=== PATIENT | male | born 1950 | race Caucasian/White ===

== ENCOUNTER 2019-06-30 10:43 | Emergency (ER) | payer MEDICARE, BC ==
[~2019-06-30] VITALS: Ht 172.7 cm; Wt 72.6 kg
--- NOTE | 2019-06-30 11:30 | PHYS DOC ---
Past Medical History Past Medical History: Arthritis, GERD, High Cholesterol, Hypertension Additional Past Medical Histor: METABOLIC ENCEPHALOPATHY,COGNITIVE IMPAIRED Past Surgical History: Other Additional Past Surgical Histo: UNKNOWN Alcohol Use: None Drug Use: None Adult General Chief Complaint Chief Complaint: MECHANICAL FALL HPI HPI Patient is a 69 year old male with history of hypertension, dyslipidemia, GERD, metabolic encephalopathy, impaired cognitive, resident of longterm who presents via EMS with complaint of a fall. shelter reports the patient has a fall from bed without loss of consciousness and was not talking like his usual. Patient states he had a fall from wheelchair and did not lost his consciousness. Patient complaining of pain in neck and left hip and rated his pain 9/10 even he looked comfortable. Patient denies focal neuro deficit, chest pain, nausea and vomiting, shortness of breath. Patient is alert and oriented but keep his eyes closed during giving the history. Review of Systems Review of Systems Constitutional: Denies fever or chills [] Eyes: Denies change in visual acuity, redness, or eye pain [] HENT: Denies nasal congestion or sore throat [] Respiratory: Denies cough or shortness of breath [] Cardiovascular: No additional information not addressed in HPI [] GI: Denies abdominal pain, nausea, vomiting, bloody stools or diarrhea [] : Denies dysuria or hematuria [] Musculoskeletal: Denies back pain, reports neck and joint pain [] Integument: Denies rash or skin lesions [] Neurologic: Denies headache, focal weakness or sensory changes [] Endocrine: Denies polyuria or polydipsia [] All other systems were reviewed and found to be within normal limits, except as documented in this note. Current Medications Current Medications Current Medications Medications (Trade) Dose Ordered Sig/[facility] Start Time Stop Time Status Last Admin Dose Admin Fentanyl Citrate (Fentanyl 2ml Vial) 50 mcg 1X ONCE 06/30/19 11:30 06/30/19 11:31 DC 06/30/19 11:39 50 MCG Allergies Allergies Allergies Coded Allergies Type Severity Reaction Last Updated Verified No Known Drug Allergies 06/30/19 No Physical Exam Physical Exam Constitutional: Well nourished, mild distress, non-toxic appearance. [] HENT: Normocephalic, atraumatic. Eyes: PERRLA, EOMI, conjunctiva normal, no discharge. [] Neck: Immobilized at arrival to ER Cardiovascular:Heart rate regular rhythm, no murmur [] Lungs & Thorax: Bilateral breath sounds clear to auscultation [] Abdomen: Bowel sounds normal, soft, no tenderness, no masses, no pulsatile masses. [] Skin: Warm, dry, no erythema, no rash. [] Back: No tenderness, no CVA tenderness. [] Extremities: Left hip with painful range of motion and marked tenderness without shortening or external rotation, no edema. [] Neurologic: Alert and oriented X 3, no focal deficits noted. [] Psychologic: Affect is flat, mood normal. [] Current Patient Data Vital Signs Vital Signs Date Time Temp Pulse Resp B/P (MAP) Pulse Ox O2 Delivery O2 Flow Rate FiO2 06/30/19 10:55 98.6 102 15 111/71 (84) 99 Room Air 98.6 Lab Values Laboratory Tests Test 06/30/19 11:34 06/30/19 12:10 White Blood Count 9.8 x10^3/uL (4.0-11.0) Red Blood Count 5.85 x10^6/uL (4.30-5.70) H Hemoglobin 16.3 g/dL (13.0-17.5) Hematocrit 48.1 % (39.0-53.0) Mean Corpuscular Volume 82 fL (79-100) Mean Corpuscular Hemoglobin 28 pg (25-35) Mean Corpuscular Hemoglobin Concent 34 g/dL (31-37) Red Cell Distribution Width 13.7 % (11.5-14.5) Platelet Count 408 x10^3/uL (140-400) H Neutrophils (%) (Auto) 67 % (31-73) Lymphocytes (%) (Auto) 22 % (24-48) L Monocytes (%) (Auto) 9 % (0-9) Eosinophils (%) (Auto) 1 % (0-3) Basophils (%) (Auto) 1 % (0-3) Neutrophils # (Auto) 6.5 x10^3/uL (1.8-7.7) Lymphocytes # (Auto) 2.2 x10^3/uL (1.0-4.8) Monocytes # (Auto) 0.9 x10^3/uL (0.0-1.1) Eosinophils # (Auto) 0.1 x10^3/uL (0.0-0.7) Basophils # (Auto) 0.1 x10^3/uL (0.0-0.2) Prothrombin Time 13.1 SEC (11.7-14.0) Prothrombin Time INR 1.0 (0.8-1.1) Sodium Level 135 mmol/L (136-145) L Potassium Level 4.1 mmol/L (3.5-5.1) Chloride Level 100 mmol/L (98-107) Carbon Dioxide Level 25 mmol/L (21-32) Anion Gap 10 (6-14) Blood Urea Nitrogen 24 mg/dL (8-26) Creatinine 0.9 mg/dL (0.7-1.3) Estimated GFR (Cockcroft-Gault) 84.2 BUN/Creatinine Ratio 27 (6-20) H Glucose Level 104 mg/dL (70-99) H Calcium Level 9.3 mg/dL (8.5-10.1) Total Bilirubin 0.5 mg/dL (0.2-1.0) Aspartate Amino Transferase (AST) 24 U/L (15-37) Alanine Aminotransferase (ALT) 22 U/L (16-63) Alkaline Phosphatase 65 U/L (46-116) Creatine Kinase 29 U/L (39-308) L Total Protein 6.7 g/dL (6.4-8.2) Albumin 3.1 g/dL (3.4-5.0) L Albumin/Globulin Ratio 0.9 (1.0-1.7) L Laboratory Tests 06/30/19 11:34 Laboratory Tests 06/30/19 12:10 EKG EKG [] Radiology/Procedures Radiology/Procedures [facility] [address] [place] [address] IMAGING REPORT Signed PATIENT: ROSE MARY STANLEY ACCOUNT: [id number] : 1950 LOCATION: ER AGE: 69 SEX: M EXAM STATUS: REG ER ORD. PHYSICIAN: FAZAL DAVIS MD REASON: fall PROCEDURE: CHEST AP ONLY AP view the pelvis and two-view study of the left hip Clinical indications: Fall. Pain. FINDINGS: No acute fracture of the left hip is seen. Left hip is normally aligned. No acute fracture or diastases of the pelvic bones is seen. IMPRESSION: No acute fracture. CHEST AP ONLY Clinical indications: Fall and pain. COMPARISON: None available. Findings: No acute lung infiltrate or pleural effusion or pulmonary edema or lung mass or pneumothorax is seen. The heart size, pulmonary vasculature, mediastinum and both willis are unremarkable. No obvious rib deformity is seen. Impression: No acute radiographic abnormality is seen. Electronically signed by: Enrrique Patiño MD (06/30/2019 1:05 PM) [id number] DICTATED and SIGNED BY: ENRRIQEU PATIÑO MD DATE: 06/30/19 1305 [facility] [address] [place] [address] IMAGING REPORT Signed PATIENT: ROSE MARY STANLEY ACCOUNT: [id number] : 1950 LOCATION: ER AGE: 69 SEX: M EXAM STATUS: REG ER ORD. PHYSICIAN: FAZAL DAVIS MD REASON: fall PROCEDURE: CT HEAD AND CERVICAL SPINE WO Examination: CT HEAD AND CERVICAL SPINE WO History: Fall, pain Comparison/Correlation: None Findings: Axial images of the head and cervical spinal obtained without contrast. Sagittal and coronal reformatted images of the cervical spine were obtained. Atrophy is present. Globes and optic nerves are unremarkable. Minimal mucosal thickening of the right maxillary sinus noted. Punctate density is present within soft tissues of the superior left nasal level. This is identified on axial image 8 of series 3. Atlantoaxial joint degenerative remodeling is present. Fusion of the right C2-4 facet joints which appears developmental is noted. Narrowing of the right C4-5 facet joint is moderate. Moderate to severe C5-6 disc space narrowing is present. Spurring is noted at this level. Mild C4-5 and C6-7 disc space narrowing noted. Mild bony encroachment upon the neural foramina at C5-6 noted on the right. Vertebral body heights are adequate. No displaced fracture or bone destruction. Calcific involvement of the left carotid bulb noted. Soft tissues of the neck are unremarkable.. Impression: Degenerative changes of the cervical spine. No intracranial hemorrhage. Punctate density within the left superior nose soft tissue region. Correlate for possible foreign body. PQRS Compliance Statement: One or more of the following individualized dose reduction techniques were utilized for this examination: 1. Automated exposure control 2. Adjustment of the mA and/or kV according to patient size 3. Use of iterative reconstruction technique Electronically signed by: Hayes Robison MD (06/30/2019 12:33 PM) [facility] DICTATED and SIGNED BY: HAYES ROBISON MD DATE: 06/30/19 1233 [facility] [address] [place] [address] IMAGING REPORT Signed PATIENT: ROSE MARY STANLEY ACCOUNT: [id number] : 1950 LOCATION: ER AGE: 69 SEX: M EXAM STATUS: REG ER ORD. PHYSICIAN: FAZAL DAVIS MD REASON: fall PROCEDURE: HIP LEFT 2V WITH PELVIS AP view the pelvis and two-view study of the left hip Clinical indications: Fall. Pain. FINDINGS: No acute fracture of the left hip is seen. Left hip is normally aligned. No acute fracture or diastases of the pelvic bones is seen. IMPRESSION: No acute fracture. CHEST AP ONLY Clinical indications: Fall and pain. COMPARISON: None available. Findings: No acute lung infiltrate or pleural effusion or pulmonary edema or lung mass or pneumothorax is seen. The heart size, pulmonary vasculature, mediastinum and both willis are unremarkable. No obvious rib deformity is seen. Impression: No acute radiographic abnormality is seen. Electronically signed by: Enrrique Patiño MD (06/30/2019 1:05 PM) [id number] DICTATED and SIGNED BY: ENRRIQUE PATIÑO MD DATE: 06/30/19 1305 Course & Med Decision Making Course & Med Decision Making Pertinent Labs and Imaging studies reviewed. (See chart for details) Evaluation of patient in ER showed 69-year-old male patient resident of longterm with history of encephalopathy and cognitive impairment brought in with complaining of a fall and injury to neck and left hip. Patient had unremarkable exam and looked comfortable but rated his pain 9/10. Patient treated with fentanyl and felt better. Patient had unremarkable labs and CT head and C-spine and x-ray of chest, left hip and pelvis. Plan discharge patient to the longterm with instruction of fall prevention. Dragon Disclaimer Dragon Disclaimer This electronic medical record was generated, in whole or in part, using a voice recognition dictation system. Departure Departure Impression: Primary Impression: Fall at longterm Additional Impressions: Acute cervical myofascial strain Injury of left hip Disposition: 03 TRANSFER SNF (at 1316) Condition: STABLE Patient Instructions: Cervical Strain and Sprain with Rehab[facility], Fall Prevention and Home Safety, Hip Injury Additional Instructions: Continue current medication Follow-up with your primary care physician in 2-3 days Return to ER if not getting better Thank you for visiting [facility]. We appreciate you trusting us with your care. If any additional problems come up don't hesitate to return to visit us. Please follow up with your primary care provider so they can plan additional care if needed and know about the problem that you had. If symptoms worsen come back to the Emergency Department. Any concerning symptoms that start such as chest pain, shortness of air, weakness or numbness on one side of the body, running high fevers or any other concerning symptoms return to the ER. Problem Qualifiers Primary Impression: Fall at longterm Encounter type: initial encounter Qualified Codes: W19.XXXA - Unspecified fall, initial encounter; Y92.129 - Unspecified place in longterm as the place of occurrence of the external cause Additional Impressions: Acute cervical myofascial strain Encounter type: subsequent encounter Qualified Codes: S16.1XXD - Strain of muscle, fascia and tendon at neck level, subsequent encounter Injury of left hip Encounter type: subsequent encounter Qualified Codes: S79.912D - Unspecified injury of left hip, subsequent encounter FAZAL DAVIS MD Jun 30, 2019 11:30
[2019-06-30] MEDS: fentaNYL PF VIAL 100 MCG/2 ML VIAL IVP ONE (11:39)
[2019-06-30 11:49] LABS: BASO # 0.1 x10^3/uL (0.0-0.2); BASO % 1 % (0-3); EOS # 0.1 x10^3/uL (0.0-0.7); EOS % 1 % (0-3); HEMATOCRIT 48.1 % (39.0-53.0); HEMOGLOBIN 16.3 g/dL (13.0-17.5); LYMPH # 2.2 x10^3/uL (1.0-4.8); LYMPH % 22 % (24-48); MEAN CORPUSCULAR HEMOGLOBIN 28 pg (25-35); MEAN CORPUSCULAR HGB CONC 34 g/dL (31-37); MEAN CORPUSCULAR VOLUME 82 fL (79-100); MONO # 0.9 x10^3/uL (0.0-1.1); MONO % 9 % (0-9); NEUT # 6.5 x10^3/uL (1.8-7.7); NEUT % 67 % (31-73); PLATELET COUNT 408 x10^3/uL (140-400); RED BLOOD COUNT 5.85 x10^6/uL (4.30-5.70); RED CELL DISTRIBUTION WIDTH 13.7 % (11.5-14.5); WHITE BLOOD COUNT 9.8 x10^3/uL (4.0-11.0)
[2019-06-30 12:29] LABS: CALCIUM 9.3 mg/dL (8.5-10.1); CREATININE 0.9 mg/dL (0.7-1.3); GFR 84.2; POTASSIUM 4.1 mmol/L (3.5-5.1)
[2019-06-30 12:35] LABS: ALBUMIN 3.1 g/dL (3.4-5.0); ALBUMIN/GLOBULIN RATIO 0.9 (1.0-1.7); TOTAL BILIRUBIN 0.5 mg/dL (0.2-1.0); TOTAL PROTEIN 6.7 g/dL (6.4-8.2)
--- NOTE | 2019-06-30 12:36 | RAD ---
Examination: CT HEAD AND CERVICAL SPINE WO History: Fall, pain Comparison/Correlation: None Findings: Axial images of the head and cervical spinal obtained without contrast. Sagittal and coronal reformatted images of the cervical spine were obtained. Atrophy is present. Globes and optic nerves are unremarkable. Minimal mucosal thickening of the right maxillary sinus noted. Punctate density is present within soft tissues of the superior left nasal level. This is identified on axial image 8 of series 3. Atlantoaxial joint degenerative remodeling is present. Fusion of the right C2-4 facet joints which appears developmental is noted. Narrowing of the right C4-5 facet joint is moderate. Moderate to severe C5-6 disc space narrowing is present. Spurring is noted at this level. Mild C4-5 and C6-7 disc space narrowing noted. Mild bony encroachment upon the neural foramina at C5-6 noted on the right. Vertebral body heights are adequate. No displaced fracture or bone destruction. Calcific involvement of the left carotid bulb noted. Soft tissues of the neck are unremarkable.. Impression: Degenerative changes of the cervical spine. No intracranial hemorrhage. Punctate density within the left superior nose soft tissue region. Correlate for possible foreign body. PQRS Compliance Statement: One or more of the following individualized dose reduction techniques were utilized for this examination: 1. Automated exposure control 2. Adjustment of the mA and/or kV according to patient size 3. Use of iterative reconstruction technique Electronically signed by: Hayes Deleon MD (06/30/2019 12:33 PM) [facility]
[2019-06-30 12:41] LABS: PROTHROMBIN TIME PATIENT 13.1 SEC (11.7-14.0)
--- NOTE | 2019-06-30 13:07 | RAD ---
AP view the pelvis and two-view study of the left hip Clinical indications: Fall. Pain. FINDINGS: No acute fracture of the left hip is seen. Left hip is normally aligned. No acute fracture or diastases of the pelvic bones is seen. IMPRESSION: No acute fracture. CHEST AP ONLY Clinical indications: Fall and pain. COMPARISON: None available. Findings: No acute lung infiltrate or pleural effusion or pulmonary edema or lung mass or pneumothorax is seen. The heart size, pulmonary vasculature, mediastinum and both willis are unremarkable. No obvious rib deformity is seen. Impression: No acute radiographic abnormality is seen. Electronically signed by: Paulo Patiño MD (06/30/2019 1:05 PM) [id number]
[2019-06-30 13:46] VITALS: BP 127/77
== END 2019-06-30 14:11 | disposition home or self-care (01) ==
LOC: ER 10:43
DX: S16.1XXA Strain of muscle, fascia and tendon at neck level, initial encounter (principal); M25.552 Pain in left hip; K21.9 Gastro-esophageal reflux disease without esophagitis; E78.00 Pure hypercholesterolemia, unspecified; I10 Essential (primary) hypertension; W06.XXXA Fall from bed, initial encounter; Y93.89 Activity, other specified; Y92.128 Other place in nursing home as the place of occurrence of the external cause; Y99.8 Other external cause status
CPT/HCPCS: 36415; 70450; 71045; 72125; 73502; 80053; 82550; 85025; 85610; 96374; 99285; J3010

== ENCOUNTER 2019-07-26 13:10 | Emergency (ER) | payer MEDICARE, BC ==
[~2019-07-26] VITALS: Ht 167.6 cm; Wt 77.0 kg
[2019-07-26] MEDS ORDERED: IV NORMAL SALINE 1000ML BAG 1,000 ML IV ONE (13:30)
[2019-07-26] MEDS ORDERED: KETOROLAC 30 MG/ML VIAL. IVP ONE (13:45)
[2019-07-26 14:00] LABS: BASO # 0.1 x10^3/uL (0.0-0.2); BASO % 1 % (0-3); EOS # 0.1 x10^3/uL (0.0-0.7); EOS % 2 % (0-3); HEMATOCRIT 36.6 % (39.0-53.0); HEMOGLOBIN 12.5 g/dL (13.0-17.5); LYMPH # 2.1 x10^3/uL (1.0-4.8); LYMPH % 30 % (24-48); MEAN CORPUSCULAR HEMOGLOBIN 28 pg (25-35); MEAN CORPUSCULAR HGB CONC 34 g/dL (31-37); MEAN CORPUSCULAR VOLUME 83 fL (79-100); MONO # 0.6 x10^3/uL (0.0-1.1); MONO % 9 % (0-9); NEUT # 4.1 x10^3/uL (1.8-7.7); NEUT % 58 % (31-73); PLATELET COUNT 413 x10^3/uL (140-400); RED BLOOD COUNT 4.44 x10^6/uL (4.30-5.70); RED CELL DISTRIBUTION WIDTH 15.4 % (11.5-14.5); WHITE BLOOD COUNT 7.1 x10^3/uL (4.0-11.0)
--- NOTE | 2019-07-26 14:02 | RAD ---
EXAM: Pelvis and left hip, 3 views. HISTORY: Pain. Fall. COMPARISON: 06/30/2019 FINDINGS: A frontal view of the pelvis and frontal and frog-leg views of the left hip are obtained. There is no fracture, dislocation or subluxation. The femoral heads are normal in configuration. IMPRESSION: No acute osseous finding. Electronically signed by: Jo-Ann Lieberman MD (07/26/2019 1:59 PM) [facility]
[2019-07-26 14:16] LABS: CALCIUM 9.1 mg/dL (8.5-10.1); GFR 74.5; POTASSIUM 3.8 mmol/L (3.5-5.1)
--- NOTE | 2019-07-26 14:20 | PHYS DOC ---
Past Medical History Past Medical History: Arthritis, Cancer, GERD, High Cholesterol, Hypertension Additional Past Medical Histor: METABOLIC ENCEPHALOPATHY, COGNITIVE IMPAIRMENT, BPH, BASAL CELL CARCINOMA Past Surgical History: Other Additional Past Surgical Histo: Skin cancer surgery Additional Information: Nonsmoker Alcohol Use: None Drug Use: None Adult General Chief Complaint Chief Complaint: MECHANICAL FALL HPI HPI 69-year-old male presents via EMS from [facility]. Patient with history of falls today and yesterday. Reports both were from standing. Patient reports he is at rehabilitation center due to generalized weakness and to obtain physical therapy. Patient denies any chest pain. Denies headache or head trauma. Denies neck pain. Patient denies syncopal episode. Denies use of blood thinners. Patient does report some discomfort to his left hip and knee. Patient reports "I'm just weak and I think I might be dehydrated ". He also reports some dysuria. Review of Systems Review of Systems Constitutional: Denies fever or chills Eyes: Denies redness or eye pain HENT: Denies nasal congestion or sore throat Respiratory: Denies cough or shortness of breath Cardiovascular: Denies chest pain or palpitations GI: Denies abdominal pain, nausea, or vomiting : Reports dysuria; denies hematuria Musculoskeletal: Denies neck pain; reports left hip and knee pain Integument: Denies rash or laceration; reports contusion Neurologic: Denies headache, focal weakness or sensory changes Complete systems were reviewed and found to be within normal limits, except as documented in this note. Current Medications Current Medications Current Medications Medications (Trade) Dose Ordered Sig/[facility] Start Time Stop Time Status Last Admin Dose Admin Ketorolac Tromethamine (Toradol 30mg Vial) 15 mg 1X ONCE 07/26/19 13:45 07/26/19 13:46 DC 07/26/19 14:10 15 MG Sodium Chloride 1,000 ml @ 1,000 mls/hr 1X ONCE 07/26/19 13:30 07/26/19 14:29 DC 07/26/19 14:10 1,000 MLS/HR Allergies Allergies Allergies Coded Allergies Type Severity Reaction Last Updated Verified No Known Drug Allergies 06/30/19 No Physical Exam Physical Exam Constitutional: Well developed, well nourished, no acute distress, non-toxic appearance HENT: Normocephalic, atraumatic, oropharynx moist Eyes: PERRL, EOMI, conjunctiva normal, no discharge, no nystagmus Neck: Normal range of motion, no midline tenderness, supple Cardiovascular: Heart rate normal, regular rhythm Lungs & Thorax: Bilateral breath sounds clear to auscultation, no wheezing Abdomen: Soft, no tenderness; pelvis stable and nontender Skin: Warm, dry, no erythema, no rash, healing anterior knee ecchymosis Back: No midline tenderness, no CVA tenderness Extremities: No deformity, left hip: pain to left femoral head, range of motion intact however discomfort on internal and external rotation; left knee: stable, negative anterior drawer sign, no bony tenderness Neurologic: Alert and oriented X 3, normal motor function, normal sensory function, no focal deficits noted Psychologic: Affect normal, judgment normal Current Patient Data Vital Signs Vital Signs Date Time Temp Pulse Resp B/P (MAP) Pulse Ox O2 Delivery O2 Flow Rate FiO2 07/26/19 15:00 84 15 97 07/26/19 13:10 98.3 134/67 (89) Room Air 98.3 Lab Values Laboratory Tests Test 07/26/19 13:48 07/26/19 15:33 White Blood Count 7.1 x10^3/uL (4.0-11.0) Red Blood Count 4.44 x10^6/uL (4.30-5.70) Hemoglobin 12.5 g/dL (13.0-17.5) L Hematocrit 36.6 % (39.0-53.0) L Mean Corpuscular Volume 83 fL (79-100) Mean Corpuscular Hemoglobin 28 pg (25-35) Mean Corpuscular Hemoglobin Concent 34 g/dL (31-37) Red Cell Distribution Width 15.4 % (11.5-14.5) H Platelet Count 413 x10^3/uL (140-400) H Neutrophils (%) (Auto) 58 % (31-73) Lymphocytes (%) (Auto) 30 % (24-48) Monocytes (%) (Auto) 9 % (0-9) Eosinophils (%) (Auto) 2 % (0-3) Basophils (%) (Auto) 1 % (0-3) Neutrophils # (Auto) 4.1 x10^3/uL (1.8-7.7) Lymphocytes # (Auto) 2.1 x10^3/uL (1.0-4.8) Monocytes # (Auto) 0.6 x10^3/uL (0.0-1.1) Eosinophils # (Auto) 0.1 x10^3/uL (0.0-0.7) Basophils # (Auto) 0.1 x10^3/uL (0.0-0.2) Prothrombin Time 13.0 SEC (11.7-14.0) Prothrombin Time INR 1.0 (0.8-1.1) Activated Partial Thromboplast Time 24 SEC (24-38) Sodium Level 142 mmol/L (136-145) Potassium Level 3.8 mmol/L (3.5-5.1) Chloride Level 108 mmol/L (98-107) H Carbon Dioxide Level 23 mmol/L (21-32) Anion Gap 11 (6-14) Blood Urea Nitrogen 12 mg/dL (8-26) Creatinine 1.0 mg/dL (0.7-1.3) Estimated GFR (Cockcroft-Gault) 74.5 BUN/Creatinine Ratio 12 (6-20) Glucose Level 163 mg/dL (70-99) H Lactic Acid Level 1.2 mmol/L (0.4-2.0) Calcium Level 9.1 mg/dL (8.5-10.1) Magnesium Level 1.8 mg/dL (1.8-2.4) Total Bilirubin 0.1 mg/dL (0.2-1.0) L Aspartate Amino Transferase (AST) 15 U/L (15-37) Alanine Aminotransferase (ALT) 14 U/L (16-63) L Alkaline Phosphatase 50 U/L (46-116) Creatine Kinase 63 U/L (39-308) Creatine Kinase MB (Mass) 0.5 ng/mL (0.0-3.6) Creatine Kinase MB Relative Index % (0-4) Troponin I Quantitative < 0.017 ng/mL (0.000-0.055) Total Protein 5.7 g/dL (6.4-8.2) L Albumin 2.9 g/dL (3.4-5.0) L Albumin/Globulin Ratio 1.0 (1.0-1.7) Urine Collection Type Unknown Urine Color Yellow Urine Clarity Clear Urine pH 6.5 Urine Specific [place] 1.015 Urine Protein Negative mg/dL (NEG-TRACE) Urine Glucose (UA) Negative mg/dL (NEG) Urine Ketones (Stick) Negative mg/dL (NEG) Urine Blood Negative (NEG) Urine Nitrite Negative (NEG) Urine Bilirubin Negative (NEG) Urine Urobilinogen Dipstick 1.0 mg/dL (0.2 mg/dL) Urine Leukocyte Esterase Negative (NEG) Urine RBC 0 /HPF (0-2) Urine WBC Occ /HPF (0-4) Urine Bacteria 0 /HPF (0-FEW) Urine Mucus Mod /LPF Laboratory Tests 07/26/19 13:48 Laboratory Tests 07/26/19 13:48 EKG EKG @1339 NSR at 85bpm, NO ST elevation, nonspecific t wave inversion III Radiology/Procedures Radiology/Procedures PROCEDURE: HIP LEFT 2V WITH PELVIS EXAM: Pelvis and left hip, 3 views. HISTORY: Pain. Fall. COMPARISON: 06/30/2019 FINDINGS: A frontal view of the pelvis and frontal and frog-leg views of the left hip are obtained. There is no fracture, dislocation or subluxation. The femoral heads are normal in configuration. IMPRESSION: No acute osseous finding. Electronically signed by: Jo-Ann Lieberman MD (07/26/2019 1:59 PM) [facility] Course & Med Decision Making Course & Med Decision Making Pertinent Labs and Imaging studies reviewed. (See chart for details) Patient presents via EMS from rehabilitation unit with report of fall yesterday and today. Patient currently neurologically intact. NIHSS 0. Labs obtained and posted to chart. UA without signs of infection. Patient also complains of left hip pain. No deformity noted. X-ray obtained without acute process. Patient stable for discharge back to rehabilitation facility with outpatient follow-up with PCP. Discussed findings and plan with patient and family, who acknowledge understanding and agreement. Dragon Disclaimer Dragon Disclaimer This electronic medical record was generated, in whole or in part, using a voice recognition dictation system. Departure Departure Impression: Primary Impression: Fall Additional Impression: Left hip pain Disposition: HOME, SELF-CARE (back to rehab center) Condition: STABLE Referrals: UNKNOWN PCP NAME (PCP) WILY WADDELL II, MD Patient Instructions: Fall Prevention and Home Safety, [id number], Hip Pain Scripts Orphenadrine Citrate (ORPHENADRINE CITRATE) 100 Mg Tablet.er 100 MG PO BID PRN for MUSCLE PAIN, #14 TAB Prov: CHUCKY AVENDANO DO 07/26/19 NIHSS Stroke Scale NIH Stroke Scale: NIH Stroke Scale Response (Comments) Value Level of Consciousness: 0 Alert/Responsive 0 LOC Questions: 0 Answers both correctly 0 LOC Commands: 0 Performs both tasks 0 Best Gaze: 0 Normal 0 Visual: 0 No visual loss 0 Facial Palsy: 0 Normal, symmetrical 0 Motor - Left Arm 0 No drift 0 Motor - Right Arm 0 No drift 0 Motor - Left Leg 0 No drift 0 Motor: Right Leg 0 No drift 0 Limb Ataxia: 0 Absent 0 Sensory: 0 No loss 0 Best Language: 0 Normal 0 Dysathria: 0 Normal 0 Extinction and Inattention: 0 Normal 0 Total 0 Problem Qualifiers Primary Impression: Fall Encounter type: initial encounter Qualified Codes: W19.XXXA - Unspecified fall, initial encounter CHUCKY AVENDANO DO Jul 26, 2019 14:20
[2019-07-26 14:23] LABS: ALBUMIN 2.9 g/dL (3.4-5.0); MAGNESIUM 1.8 mg/dL (1.8-2.4); TOTAL BILIRUBIN 0.1 mg/dL (0.2-1.0); TOTAL PROTEIN 5.7 g/dL (6.4-8.2)
[2019-07-26 14:31] LABS: CREATINE KINASE 63 U/L (39-308)
[2019-07-26 15:39] LABS: BILIRUBIN,URINE NEGATIVE (NEG); CLARITY,URINE CLEAR; COLOR,URINE YELLOW; NITRITE,URINE NEGATIVE (NEG); PH,URINE 6.5; PROTEIN,URINE NEGATIVE (NEG-TRACE)
[2019-07-26 15:46] LABS: BACTERIA,URINE 0 /HPF (0-FEW); RBC,URINE 0 /HPF (0-2); WBC,URINE OCC /HPF (0-4)
[2019-07-26] MEDS ORDERED: ORPH100T PO (16:03)
[2019-07-26 17:29] VITALS: BP 138/62
--- NOTE | 2019-07-27 11:14 | EKG ---
[facility] [address] [place] [address] Test Date: 2019-07-26 Test Time: 13:39:46 Pat Name: ROSE MARY STANLEY Department: Room: Gender: M [employer]: : 1950 Requested By: CHUCKY AVENDANO Order Number: [id number] Reading MD: Measurements Intervals [place] Rate: 85 P: 41 ME: 172 QRS: -4 QRSD: 84 T: 11 QT: 438 QTc: 528 Interpretive Statements SINUS RHYTHM LEFTWARD AXIS QRS(T) CONTOUR ABNORMALITY CONSIDER ANTEROSEPTAL MYOCARDIAL DAMAGE PROLONGED QT POSSIBLY ABNORMAL ECG RI6.01 No previous ECG available for comparison
== END 2019-07-26 18:21 | disposition home or self-care (01) ==
LOC: ER 13:10
DX: M25.552 Pain in left hip (principal); G89.11 Acute pain due to trauma; M25.562 Pain in left knee; R53.1 Weakness; K21.9 Gastro-esophageal reflux disease without esophagitis; E78.00 Pure hypercholesterolemia, unspecified; I10 Essential (primary) hypertension; N40.0 Benign prostatic hyperplasia without lower urinary tract symptoms; W18.39XA Other fall on same level, initial encounter; Y93.89 Activity, other specified; Y92.89 Other specified places as the place of occurrence of the external cause; Y99.8 Other external cause status
CPT/HCPCS: 36415; 73502; 80053; 81001; 82553; 83605; 83735; 84484; 85025; 85610; 85730; 93005; 96374; 99285; J1885; J7030